=== PATIENT | female | born 1955 | race Caucasian/White ===

== ENCOUNTER 2023-12-09 07:24 | Emergency (ER) | payer MEDICARE, OTHER, SELFPAY ==
--- NOTE | 2023-12-09 07:02 | ECG_ITS ---
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 Measurements Intervals [place] Rate: 57 P: -40 WI: 217 QRS: 19 QRSD: 92 T: 83 QT: 422 QTc: 412 Interpretive Statements SINUS BRADYCARDIA WITH FIRST DEGREE AV BLOCK LOW QRS VOLTAGE IN PRECORDIAL LEADS [QRS DEFLECTION < 1.0 mV IN CHEST LEADS] NONSPECIFIC ST & T-WAVE ABNORMALITY Compared to ECG 01/12/2018 09:48:32 First degree AV block now present Low QRS voltage now present T-wave abnormality now present Electronically Signed On 12-10-2023 21:30:04 CDT by Cara Sheffield M.D. [id number]
[2023-12-09 07:30] VITALS: BP 169/97; PULSE 62; RESP 17; TEMP 36.4; O2SAT 96; BMI 37.8
[2023-12-09 07:39] VITALS: BP 165/86; PULSE 57; RESP 12; O2SAT 96
--- NOTE | 2023-12-09 07:50 | ED_ITS ---
HPI - Neck Pain/Injury General: Chief Complaint: Neck Pain/Injury Stated Complaint: right side face, neck and shoulder pain Time Seen by Provider: 12/09/23 07:31 Source: patient Mode of arrival: ambulatory History of Present Illness: 68-year-old female who presents to the e mergency room with complaint of right- sided neck pain. She states she woke up with the pain she denies any chest pain any shortness of breath no fever sweats or chills no tooth or gum pain. She has not noted any rash. She has not had any difficulty breathing. No history of recent trauma. She has not noticed any thing that exacerbates or relieves the pain. She reports a sensation of swelling on that side of the neck. Onset (ago): minute(s) Place: home Relieving factors: none Exacerbating factors: none Associated symptoms: Denies dysphagia, difficulty walking, dizziness, fevers/chills, headache(s), nausea, swollen glands, tingling or weakness Review of Systems Const: Denies: fever(s) or chills Card: Denies: chest pain Resp: Denies: dyspnea GI: Denies: nausea or dysphagia : Denies: dysuria, urinary frequency or urinary urgency Musc: Denies: neck pain or back pain Skin/Breast: Denies: rash Neuro: Denies: headache(s), difficulty walking or dizziness Physical Exam Const: COMMON NORMALS: no acute distress GENERAL APPEARANCE: cooperative and comfortable ORIENTATION/CONSCIOUSNESS: Yes awake, Yes oriented to person, Yes oriented to place and Yes oriented to time HENMT: COMMON NORMALS: normocephalic, atraumatic and hearing grossly normal bilaterally HEAD & SCALP: normocephalic and atraumatic OTHER: Oropharynx is normal there is no rash no vesicles no swelling in the gumline no swelling of the tongue or posterior pharyngeal wall no redness or erythema the posterior pharyngeal wall the tonsillar pillars or buccal mucosa. Neck/C-Spine: OTHER: Examination of the area patient is indicating that discomfort in the lower edge of the mandible and upper portion of the neck. There is no palpable swelling or lymphadenopathy no overlying redness erythema or rash. No carotid bruits no stridor. Full range of motion on the neck without limitation no meningeal signs. No swelling of the parotid gland or pain with palpation of the parotid gland. Resp: COMMON NORMALS: normal respiratory effort, No retractions, No use of accessory muscles and clear to auscultation bilaterally AUSCULTATION: clear to auscultation bilaterally Cardio: COMMON NORMALS: regular rate, regular rhythm and No murmurs present (Cardio) RATE: regular rate RHYTHM: regular rhythm GI: COMMON NORMALS: Soft to palpation and No hepatosplenomegaly present AUSCULTATION: Yes normoactive bowel sounds PALPATION: Yes Soft to palpation, No Tenderness to palpation present (GI), No Guarding due to palpation present (GI) and Yes No hepatosplenomegaly present Extremity: COMMON NORMALS: normal to inspection, capillary refill normal, no clubbing, cyanosis or edema, no calf tenderness and no pedal edema Neuro: SENSORIUM/ORIENTATION: Yes oriented to person, Yes oriented to place and Yes oriented to time OTHER: No focal neurologic deficits. No lateralizing symptoms. Good strength in all the arms no facial asymmetry no aphasia or dysarthria. Skin: COMMON NORMALS: no rashes or lesions noted GENERAL SKIN EXAM: no rashes or lesions noted Course Vital Signs: Vital signs: Vital Signs Temperature 97.6 F 12/09/23 07:30 Pulse Rate 57 L 12/09/23 07:39 Respiratory Rate 12 12/09/23 07:39 Blood Pressure 165/86 12/09/23 07:39 Pulse Oximetry 96 12/09/23 07:39 Oxygen Delivery Me thod Room Air 12/09/23 07:39 MDM - Neck Pain/Injury Medical Decision Making No respiratory compromise no swelling no sign of infection no sign of parotitis there is no stridor no carotid bruit no focal neurologic deficits are noted her sed rate is normal no musculoskeletal findings no pain with range of motion of the shoulder no cervical radicular-like symptoms. Offered the patient a short course of steroid suspect that may be just a facial neuropathy although there is no evidence of zoster at this time. It is not consistent with a Kingsley's palsy or trigeminal neuralgia. Patient declined prednisone states it makes her not able to sleep she considers an allergy give a short course of Lyrica if persist follow-up with primary care. EKG shows sinus bradycardia with a rate of 57 with no acute changes sed rate is normal. Patient asked about getting an x-ray of the area discussed with her that there is no indication is unlikely that the x- ray would show anything helpful to differential diagnosis or treatment at this time. Medical Records I reviewed the patient's medical records. Lab Data I reviewed the patient's lab results. Laboratory Results ESR 13 mm/hr (0-15) 12/09/23 08:16 No radiology studies performed this visit Discharge Plan Discharge Patient Disposition: Home Clinical Impression: Acute facial pain Condition: Stable Prescriptions: New Lyrica 75 mg capsule 75 mg PO BID Qty: 20 0RF Discharge Orders: Discharge ED (Routine); Ordered 12/09/23 Ordered By: Jadon Navarro Discharge Diet: Usual diet Discharge Activity: Increase activity as tolerated Patient Instructions: Opioid Safety, Pain Management Activity Restrictions/Additional Instructions: Thank you for choosing [facility] for your healthcare needs today. Please realize this is an emergency room and that we are providing you with a medical screening exam and this may not be complete and all inclusive of all the testing and or work up that you may need to determine your ailment or severity of your illness. It is very important that you follow up as instructed or that you return to the Emergency Department should you have concerns or if your condition changes or worsens in any way. You were seen today for complaint of facial pain radiating to the congregational. On exam there is no sign of any neurologic deficits no sign of any infection of the parotid gland no sign of any infection along the gumline no rash or abnormality of the skin or of the mucosa in the mouth. There were no palpable lymph nodes on your neck there are no signs of respiratory compromise (stridor). No evidence on exam of infectious process, there were no signs on your exam of any acute neurologic deficits suggestive of a stroke. Your blood pressure is mildly elevated and should be followed up with your primary care doctor. You were given a shot of steroids and a course of steroids to take starting tomorrow. 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
[2023-12-09 08:54] LABS: Erythrocyte Sedimentation Rate 13 mm/hr (0-15)
[2023-12-09 09:01] VITALS: BP 154/80; PULSE 58; RESP 15; O2SAT 98
== END 2023-12-09 09:17 | disposition home or self-care (01) ==
PROVIDERS: Emergency Provider Family Medicine; PCP Nurse Practitioner Family
DX: R51.9 Headache, unspecified (principal)
CPT/HCPCS: 36415; 85651; 93005; 99284

== ENCOUNTER 2025-03-11 09:02 | Emergency (ER) | payer MEDICARE, OTHER, SELFPAY ==
[2025-03-11 09:04] VITALS: BP 139/64; PULSE 53; RESP 16; TEMP 36.7; O2SAT 96; BMI 37.8
--- NOTE | 2025-03-11 09:04 | ECG_ITS ---
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 Measurements Intervals [place] Rate: 54 P: -32 DC: 217 QRS: 51 QRSD: 84 T: 90 QT: 435 QTc: 415 Interpretive Statements SINUS BRADYCARDIA WITH FIRST DEGREE AV BLOCK WITH OCCASIONAL VENTRICULAR PREMATURE COMPLEXES NONSPECIFIC T-WAVE ABNORMALITY Compared to ECG 12/09/2023 07:02:32 Ventricular premature complex(es) now present T-wave abnormality still present Electronically Signed On 03-13-2025 06:19:13 CDT by Cara Sheffield M.D. [id number] [id number]
--- NOTE | 2025-03-11 09:05 | XRR_ITS ---
PROCEDURE INFORMATION: Exam: XR Chest Exam date and time: 03/11/2025 9:13 AM Age: 69 years old Clinical indication: Pain; Chest pressure; Additional info: Chest pain TECHNIQUE: Imaging protocol: Radiologic exam of the chest. Views: 1 view. COMPARISON: No relevant prior studies available. FINDINGS: Lungs: Unremarkable. No consolidation. Pleural spaces: Unremarkable. No pleural effusion. No pneumothorax. Heart/Mediastinum: See Vasculature finding. Vasculature: Mild cardiomegaly and uncoiling of the thoracic aorta. Bones/joints: Unremarkable. XR/XR chest 1V portable [id number] IMPRESSION: No acute findings.
--- NOTE | 2025-03-11 09:12 | ED_ITS ---
HPI - Chest Pain 2 General: Chief Complaint: Chest Pain Stated Complaint: CHEST PAIN Time Seen by Provider: 03/11/25 09:05 Source: patient Mode of arrival: EMS Limitations: no limitations History of Present Illness: Patient is a nice 69-year-old female with no known past medical history other than vestibular migraines here for complaints of an episode of chest pain. Patient states just prior to arrival she was seated, speaking with her who is waiting on a doctor's appointment when she began developing pain just to the right of her sternum. She states pain got up to a 9/10 and seem to radiate into the right side of her neck and jaw. Patient states she had some leftover nitro from a family member and states she took one. She states shortly after she did notice improvement to her symptoms. At time of my examination she is complaining of very minimal pain. Currently rating her jaw pain at a 3/10. She does not complain of palpitations. No shortness of breath or difficulty breathing. No known cardiac history. MD complaint: chest pain Onset (ago): hour(s) Timing of current episode: other (improving) Prior episodes: No Onset: during rest Pain location: right chest Pain radiation: neck and jaw/teeth Severity: severe Pain scale (0-10): 9 Relieving factors: nitroglycerin Exacerbating factors: nothing Associated symptoms: Reports no associated symptoms; Deny abdominal pain, dyspnea, fever(s), nausea, palpitations, syncope or vomiting Treatment prior to arrival: nitroglycerin Risk Factors: Coronary artery disease risk factors: none Thoracic aortic dissection risk factors: none Related Data Home Medications ?Medication ?Instructions ?Recorded ?Confirmed No Known Home Medications 03/11/2502/23 Allergies Allergy/AdvReac Type Severity Reaction Status Date / Time morphine Allergy ALGY-Difficulty Verified 12/09/23 07:36 Breathing Review of Systems 2 Const: Denies: fever(s), chills, body aches, fatigue or malaise Card: Reports: chest pain (improving); Denies: palpitations, irregular heart rhythm, edema, swelling of feet/ankles, lightheadedness, syncope, pre-syncope, dyspnea on exertion, orthopnea, leg pain with exertion or acrocyanosis Resp: Denies: dyspnea, productive cough, non-productive cough, pain on inspiration or chest congestion GI: Denies: abdominal pain, nausea, vomiting or diarrhea : Denies: flank pain or dysuria Musc: Reports: neck pain; Denies: back pain, extremity pain, extremity swelling, joint pain, joint swelling or joint redness Skin/Breast: Denies: rash Neuro: Denies: headache(s), numbness in extremities, weakness in extremities, sensory changes, difficulty walking, dizziness, confusion or Slurred speech present Physical Exam 2 Const: COMMON NORMALS: no acute distress, average body habitus, patient oriented x3, no limitations, healthy appearing, alert and well nourished G ENERAL APPEARANCE: cooperative ORIENTATION/CONSCIOUSNESS: Yes awake, Yes oriented to person, Yes oriented to place and Yes oriented to time HENMT: COMMON NORMALS: normocephalic and atraumatic HEAD & SCALP: n ormocephalic and atraumatic Neck/C-Spine: COMMON NORMALS: full ROM, no lymphadenopathy, supple, no meningeal signs, no JVD and No carotid bruits GENERAL: Yes normal visual inspection Chest: COMMONS NORMALS: normal inspection of the chest and normal palpation of entire chest wall Resp: COMMON NORMALS: normal respiratory effort and clear to auscultation bilaterally AUSCULTATION: clear to auscultation bilaterally Cardio: COMMON NORMALS: no JVD, regular rate and regular rhythm RATE: r egular rate RHYTHM: regular rhythm GI: COMMON NORMALS: Normal to inspection, nondistended, normoactive bowel sounds present, Soft to palpation, non-tender, No hepatosplenomegaly present and no masses PALPATION: Yes Soft to palpation and Yes No hepatosplenomegaly present : COMMON NORMALS: Yes no CVA tenderness BLADDER/KIDNEY EXAM: Yes no CVA tenderness Back/Pelvis: COMMON NORMALS: no CVA tenderness and thoracic and lumbar spine normal to inspection Extremity: COMMON NORMALS: normal to inspection GENERAL: Yes normal exam except as noted Neuro: CHLOE COMA SCALE: document GCS findings Chloe coma scale eye opening: Spontaneous [place] coma scale verbal response: Orientated Chloe coma scale motor response: Obey commands Chloe coma scale total score: 15 COMMON NORMALS: patient oriented x3, moves all extremities, no focal motor deficits and no sensory deficits noted SENSORIUM/ORIENTATION: Yes alert, Yes oriented to person, Yes oriented to place and Yes oriented to time MENINGEAL SIGNS: Yes no meningeal signs Skin: COMMON NORMALS: no rashes or lesions noted GENERAL SKIN EXAM: no rashes or lesions noted Course 2 Vital Signs: Vital signs: Vital Signs Temperature 98.1 F 03/11/25 09:04 Pulse Rate 48 L 03/11/25 10:30 Respiratory Rate 16 03/11/25 09:04 Blood Pressure 145/73 03/11/25 10:30 Pulse Oximetry 97 03/11/25 10:30 Oxygen Delivery Me thod Room Air 03/11/25 10:30 MDM - Chest Pain Medical Decision Making Patient has been asymptomatic throughout her stay. She states she feels completely back to normal and like to go home. Her vital signs are stable. She has baseline bradycardia. Blood work overall is unremarkable. Her baseline repeat troponins are completely unremarkable. EKGs are nonischemic. 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 Return to ED precautions discussed. Medical Records I reviewed the patient's medical records. Lab Data I reviewed the patient's lab results. 03/11/25 09:17 03/11/25 09:17 Radiology Impressions Chest X-Ray 03/11/25 09:05 IMPRESSION: No acute findings. Laboratory Results WBC 4.82 10^3/uL (3.29-11.43) 03/11/25 09:17 RBC 4.51 10^6/uL (3.85-5.65) 03/11/25 09:17 Hgb 13.40 g/dL (11.27-16.99) 03/11/25 09:17 Hct 40.7 % (36-47) 03/11/25 09:17 MCV 90.2 fl (85-98) 03/11/25 09:17 MCH 29.7 pg (27-33) 03/11/25 09:17 MCHC 32.9 g/dL (30-55) 03/11/25 09:17 RDW 14.3 % (12.1-15.1) 03/11/25 09:17 Plt Count 169 10^3/cmm (157-399) 03/11/25 09:17 MPV 11.2 fL (7.4-10.4) H 03/11/25 09:17 Neut % (Auto) 53.3 % 03/11/25 09:17 Lymph % (Auto) 32.4 % 03/11/25 09:17 Vernon % (Auto) 8.9 % 03/11/25 09:17 Eos % (Auto) 4.4 % 03/11/25 09:17 Baso % (Auto) 0.8 % 03/11/25 09:17 Neut # (Auto) 2.57 10^3/uL (1.8-7.7) 03/11/25 09:17 Lymph # (Auto) 1.6 10^3/uL (0.8-4.8) 03/11/25 09:17 Vernon # (Auto) 0.4 10^3/uL (0.2-0.9) 03/11/25 09:17 Eos # (Auto) 0.2 10^3/uL (0.0-0.8) 03/11/25 09:17 Baso # (Auto) 0.0 10^3/uL (0.0-0.1) 03/11/25 09:17 Nucleated RBC % (auto) 0 % 03/11/25 09:17 Nucleated RBCs # 0.0 /100WBC 03/11/25 09:17 Sodium 137 mmol/L (136-145) 03/11/25 09:17 Potassium 3.8 mmol/L (3.5-5.1) 03/11/25 09:17 Chloride 105 mmol/L (98-107) 03/11/25 09:17 Carbon Dioxide 23 mmol/L (22-29) 03/11/25 09:17 Anion Gap 12.8 (5-19) 03/11/25 09:17 BUN 17 mg/dL (8-23) 03/11/25 09:17 Creatinine 0.6 mg/dL (0.5-0.9) 03/11/25 09:17 GFR Calculation 99.7 mL/min (90-130) 03/11/25 09:17 Glucose 97 mg/dL (65-115) 03/11/25 09:17 Calculated Osmolality 285 mOsm/kg (285-295) 03/11/25 09:17 Calcium 8.7 mg/dL (8.5-10.5) 03/11/25 09:17 Total Bilirubin 0.4 mg/dL (0.15-1.2) 03/11/25 09:17 AST 18 U/L (0-32) 03/11/25 09:17 ALT 11 U/L (0-33) 03/11/25 09:17 Alkaline Phosphatase 95 U/L (35-105) 03/11/25 09:17 Troponin T Baseline < 6 ng/L (0-10) 03/11/25 09:17 Troponin T 120 Minute < 6.0 ng/L (0-10) 03/11/25 11:07 Delta Troponin T 0 ABS# (0-10) 03/11/25 11:07 Total Protein 6.7 g/dL (6.6-8.7) 03/11/25 09:17 Albumin 4.0 g/dL (3.5-5.2) 03/11/25 09:17 Globulin 2.7 g/dL (1.3-4.6) 03/11/25 09:17 All radiology interpretation(s) finalized by discharge Discharge Plan Discharge Patient Disposition: Home Clinical Impression: Atypical chest pain Condition: Stable Prescriptions: No Action No Known Home Medications Discharge Orders: Discharge ED (Routine); Ordered 03/11/25 Ordered By: Danielle Baxter Referrals: Kelsie Mai NP [Primary Care Provider, Nurse Practitioner] Patient Instructions: Chest Pain (DC) Activity Restrictions/Additional Instructions: As we discussed, please contact your cardiology office today to schedule a ER follow-up visit for further evaluation and possible outpatient stress testing. You may also follow-up with primary care in the meantime. You may return to the emergency department for further onset of chest pain, shortness of breath, difficulty breathing, or any other concerns you may have. 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
[2025-03-11 09:29] LABS: Basophils % 0.8 %; Eosinophils # 0.2 10^3/uL (0.0-0.8); Eosinophils % 4.4 %; Hematocrit 40.7 % (36-47); Lymphocytes # 1.6 10^3/uL (0.8-4.8); Lymphocytes % 32.4 %; Mean Corpuscular HGB Conc 32.9 g/dL (30-55); Mean Corpuscular Hemoglobin 29.7 pg (27-33); Mean Corpuscular Volume 90.2 fl (85-98); Mean Platelet Volume 11.2 fL (7.4-10.4); Monocytes # 0.4 10^3/uL (0.2-0.9); Monocytes % 8.9 %; Neutrophils # 2.57 10^3/uL (1.8-7.7); Neutrophils % 53.3 %; Nucleated Red Blood Cells % 0 %; Platelet Count 169 10^3/cmm (157-399); Red Blood Count 4.51 10^6/uL (3.85-5.65); Red Cell Distribution Width 14.3 % (12.1-15.1); White Blood Count 4.82 10^3/uL (3.29-11.43)
[2025-03-11 09:46] LABS: Troponin(5th) Baseline < 6 ng/L (0-10)
[2025-03-11 09:48] LABS: Alanine Aminotransferase 11 U/L (0-33); Alkaline Phosphatase 95 U/L (35-105); Anion Gap 12.8 (5-19); Aspartate Amino Transferase 18 U/L (0-32); Blood Urea Nitrogen 17 mg/dL (8-23); Calcium 8.7 mg/dL (8.5-10.5); Carbon Dioxide 23 mmol/L (22-29); Chloride 105 mmol/L (98-107); Creatinine Clr Calc Pharmacy 69.9864; Globulin 2.7 g/dL (1.3-4.6); Glomerular Filtration Rate 99.7 mL/min (90-130); Glucose 97 mg/dL (65-115); Osmolality Calculated 285 mOsm/kg (285-295); Potassium 3.8 mmol/L (3.5-5.1); Sodium 137 mmol/L (136-145); Total Bilirubin 0.4 mg/dL (0.15-1.2); Total Protein 6.7 g/dL (6.6-8.7)
--- NOTE | 2025-03-11 10:25 | PC.NURSE ---
Patient Rounding Patient sitting up in bed at this time. She states that she is feeling pretty good . No further needs voiced at this time.
[2025-03-11 10:30] VITALS: BP 145/73; PULSE 48; O2SAT 97
--- NOTE | 2025-03-11 11:05 | ECG_ITS ---
[email or web address] Date: 2025-[facility]-11 Pat Name: Laney Alonso Department: Room: Gender: Female Director Cardiovascular: : 1955 Requested By: Danielle Baxter Order Number: [id number] Govind MD: Everett Hdez M.D. Measurements Intervals [place] Rate: 48 P: 42 [place]: 285 QRS: 17 QRSD: 90 T: 92 QT: 450 QTc: 405 Interpretive Statements SINUS BRADYCARDIA WITH FIRST DEGREE AV BLOCK NONSPECIFIC ST & T-WAVE ABNORMALITY Compared to ECG 03/11/2025 09:04:25 Ventricular premature complex(es) no longer present T-wave abnormality still present Electronically Signed On 03-13-2025 08:18:22 CDT by Everett Hdez M.D. [id number] [id number]
[2025-03-11 12:02] LABS: Troponin 5 2HR < 6.0 ng/L (0-10); Troponin 5 2HR Delta 0 ABS# (0-10)
[2025-03-11 13:00] VITALS: BP 107/57; PULSE 54; O2SAT 97
== END 2025-03-11 13:01 | disposition home or self-care (01) ==
PROVIDERS: Emergency Provider Physician Assistant; PCP Nurse Practitioner Family
DX: R07.89 Other chest pain (principal)
CPT/HCPCS: 36415; 71045; 80053; 84484; 85025; 93005; 99285